=== PATIENT | female | born 1980 | race Caucasian/White ===

== ENCOUNTER 2021-06-09 16:09 | Outpatient (REF) | payer BC, SELFPAY ==
[2021-06-09 16:43] LABS: COVID-19 Test Negative (Negative)
== END 2021-06-09 16:10 | disposition home or self-care (01) ==
LOC: HO.LAB 16:09
PROVIDERS: Referring Provider Internal Medicine; Visit Provider Internal Medicine
DX: Z20.822 Contact with and (suspected) exposure to COVID-19 (principal)
CPT/HCPCS: 87635